=== PATIENT | female | born 1975 | race Hispanic/Latino ===

== ENCOUNTER 2022-09-16 00:13 | Emergency (ER) | payer OTHER ==
[~2022-09-16] VITALS: Ht 149.9 cm; Wt 81.6 kg
[2022-09-16] MEDS ORDERED: KETOROLAC TROMETHAMINE 60 MG/2 ML VIAL IM ONE (01:15)
[2022-09-16] MEDS ORDERED: CYCLOBENZAPRINE10 MG PO (01:22)
[2022-09-18] MEDS ORDERED: CYCLOBENZAPRINE10 MG PO (13:46)
== END 2022-09-16 01:34 | disposition home or self-care (01) ==
LOC: ER 00:16
DX: M79.602 Pain in left arm (principal); R10.11 Right upper quadrant pain; M54.6 Pain in thoracic spine; E11.9 Type 2 diabetes mellitus without complications
CPT/HCPCS: 99282

== ENCOUNTER → 2023-04-09 | Outpatient (CLI) | payer OTHER ==
[~2023-04-09] MED LIST: CYCLOBENZAPRINE10 MG PO
== END ==
LOC: US 07:24
PROVIDERS: ATTEND Nurse Practitioner
DX: R10.10 Upper abdominal pain, unspecified (principal); R10.84 Generalized abdominal pain; R19.7 Diarrhea, unspecified; R12 Heartburn
CPT/HCPCS: 76700; 76856

== ENCOUNTER 2024-06-11 14:00 | Emergency (ER) | payer OTHER ==
[~2024-06-11] VITALS: Ht 149.9 cm; Wt 79.4 kg
[~2024-06-11 14:00] MED LIST changes: +AUGMENTIN 500-1 EACH PO; +CIPRODEX OTIC7.5 ML EACH EAR; +JARDIANCE10 MG PO; +TRESIBA100 UNIT/1 SC; +TRULICITY0.75 MG/0. SC; +TRULICITY1.5 MG/0.5 SC; +ZESTRIL2.5 MG PO; +[UNRECOGNIZED DRUG - OTHER] PO
[2024-06-11 14:16] VITALS: PULSE 91; RESP 20; TEMP 98.1; O2SAT 96
[2024-06-11] MEDS ORDERED: AUGMENTIN 500-1 EACH PO (14:20)
[2024-06-11] MEDS ORDERED: ULTRAM 50MG50 MG PO (14:22)
[2024-06-11] MEDS: TETANUS/DIPHTHERIA TOX ADULT 0.5 ML SYR IM ONE (14:25)
[2024-06-11] MEDS: HYDROCODONE/APAP 5MG-325MG TAB PO ONE (14:26)
== END 2024-06-11 14:30 | disposition home or self-care (01) ==
LOC: FSED 14:07
DX: S30.871A Other superficial bite of abdominal wall, initial encounter (principal); W54.0XXA Bitten by dog, initial encounter; Y92.89 Other specified places as the place of occurrence of the external cause; E11.9 Type 2 diabetes mellitus without complications
CPT/HCPCS: 90471; 90714; 99283

== ENCOUNTER 2024-06-11 14:01 | Emergency (ER) | payer OTHER ==
[2024-06-11] MEDS ORDERED: AUGMENTIN 500-1 EACH PO (14:20)
[2024-06-11] MEDS ORDERED: ULTRAM 50MG50 MG PO (14:22)
== END 2024-06-13 10:15 | disposition short-term general hospital (02) ==
LOC: ER 14:01
DX: S30.871A Other superficial bite of abdominal wall, initial encounter (principal)